=== PATIENT | female | born 1975 | race Two or more races ===

== ENCOUNTER 2022-10-12 04:29 | Day surgery (SDC) | payer OTHER ==
[2022-10-10 14:56] VITALS: BMI 29.9
[2022-10-12 10:36] VITALS: TEMP 97.1
[2022-10-12 11:01] VITALS: PULSE 65
[2022-10-12 11:24] VITALS: BP 117/74; RESP 16
== END 2022-10-12 12:18 | disposition home or self-care (01) ==
LOC: JASU-ENDO 04:29
PROVIDERS: ATTEND Internal Medicine Gastroenterology
PROC: 0DBN8ZX Excision of Sigmoid Colon, Via Natural or Artificial Opening Endoscopic, Diagnostic (ICD-10-PCS; principal; 2022-10-12 10:15)
DX: Z12.11 Encounter for screening for malignant neoplasm of colon (principal); D12.5 Benign neoplasm of sigmoid colon
CPT/HCPCS: 81025; 88305-TC

== ENCOUNTER 2022-10-23 04:34 | Day surgery (SDC) | payer OTHER ==
[2022-10-17 12:21] VITALS: BMI 29.3
[2022-10-23] MEDS ORDERED: DEXAMETHASONE SOD PHOSPHATE 4 MG/1 ML VIAL ONE (09:02)
[2022-10-23] MEDS ORDERED: LIDOCAINE HCL 2% (20ML MULTI-DOSE VIAL) ONE (09:02)
[2022-10-23] MEDS ORDERED: BUPIVACAINE HCL/PF 0.5% (5MG/ML) 10 ML VIAL ONE (09:03)
[2022-10-23] MEDS ORDERED: MIDAZOLAM HCL 2 MG/2 ML SINGLE DOSE VIAL ONE (09:33)
[2022-10-23] MEDS ORDERED: ceFAZolin SODIUM 1 GM VIAL IVPB ONE (09:34)
[2022-10-23] MEDS ORDERED: DEXAMETHASONE SOD PHOSPHATE 4 MG/1 ML VIAL NR ONE (10:17)
[2022-10-23] MEDS ORDERED: PROMETHAZINE HCL 25 MG/1 ML VIAL IVPB PRN (10:41)
[2022-10-23] MEDS ORDERED: ONDANSETRON 4 MG/2 ML VIAL IVPUSH PRN (10:41)
[2022-10-23] MEDS ORDERED: oxyCODONE HCL 5 MG TABLET PO PRN (10:41)
[2022-10-23 13:16] VITALS: BP 120/70; PULSE 69; RESP 20; TEMP 97.7
== END 2022-10-23 15:32 | disposition home or self-care (01) ==
LOC: JASU-SURG 04:34
PROVIDERS: ATTEND Podiatrist
PROC: 0QSN04Z Reposition Right Metatarsal with Internal Fixation Device, Open Approach (ICD-10-PCS; principal; 2022-10-23 09:00)
DX: M21.611 Bunion of right foot (principal)
CPT/HCPCS: 73630-TC-RT-FY; 81025; 88304-TC; 88311-TC; 94760

== ENCOUNTER 2024-10-03 04:17 | Day surgery (SDC) | payer OTHER ==
[2024-10-01 12:36] VITALS: BMI 27.2
[2024-10-03] MEDS ORDERED: LIDOCAINE HCL 2% (20ML MULTI-DOSE VIAL) ONE (09:33)
[2024-10-03] MEDS ORDERED: BUPIVACAINE HCL/PF 0.5% (5MG/ML) 10 ML VIAL ONE ×2 (09:33→09:49)
[2024-10-03] MEDS ORDERED: DEXAMETHASONE SOD PHOSPHATE 10 MG/1 ML VIAL ONE (09:33)
[2024-10-03] MEDS ORDERED: LIDOCAINE HCL/PF 2% SDV 5ML VIAL ONE (09:36)
[2024-10-03] MEDS ORDERED: MIDAZOLAM HCL 2 MG/2 ML SINGLE DOSE VIAL ONE (09:36)
[2024-10-03] MEDS ORDERED: PROPOFOL 20 ML ONE ×2 (09:36→10:00)
[2024-10-03] MEDS ORDERED: ceFAZolin SODIUM 1 GM VIAL ONE ×2 (10:12→10:13)
[2024-10-03] MEDS: LACTATED RINGERS SOLUTION 1,000 ML IV SCH (11:50)
[2024-10-03 12:33] VITALS: RESP 15
[2024-10-03 12:34] VITALS: TEMP 97.3
[2024-10-03 13:46] VITALS: BP 127/71; PULSE 90
== END 2024-10-03 14:30 | disposition home or self-care (01) ==
LOC: JASU-SURG 04:17
PROVIDERS: ATTEND Student in an Organized Health Care Education/Training Program
PROC: 0QSP04Z Reposition Left Metatarsal with Internal Fixation Device, Open Approach (ICD-10-PCS; principal; 2024-10-03 10:15)
DX: M20.12 Hallux valgus (acquired), left foot (principal)
CPT/HCPCS: 73630-TC-LT; 76000-TC-FY; 81025; 88305-TC; 88311-TC; 94760; C1713; J1100